=== PATIENT | male | born 1990 | race Caucasian/White ===

== ENCOUNTER → 2018-06-23 | Outpatient (CLI) | payer OTHER ==
[~2018-06-23] MED LIST: AZIT250 PO; CEPH500 PO; CYCL10 PO; Cleocin HCl300 MG PO; DOXY100 PO; ERYT333ERA PO; ERYT500 PO; HYDACE5 PO; HYDR1TAB94 PO; IBUP800 PO; KETO10 PO; LEVO750 PO; LORA10ER PO; Levaquin750 MG PO; Mobic15 MG PO; NAPR500 PO; Naprosyn500 MG PO; Norco 10-325 T1 EACH PO; Norco 5-325 Ta1 EACH PO; PRED10 PO; PRED20 PO; Percocet 10-321 EACH PO; Prednisone10 MG PO; Prednisone20 MG PO; RXCYCL10 PO; SULTRIDS PO; TRAM50 PO; Valium5 MG PO; Zofran Odt4 MG SL
== END | disposition home or self-care (01) ==
LOC: LAB EV 14:59 → LAB SHORT 14:59
DX: J02.9 Acute pharyngitis, unspecified (principal)
CPT/HCPCS: 87070